=== PATIENT | female | born 1990 | race African-American/Black ===

== ENCOUNTER 2021-05-09 01:55 | Day surgery (SDC) | payer OTHER, SELFPAY ==
[2021-05-01 14:00] VITALS: BMI 23.1
--- NOTE | 2021-05-01 14:12 | PC.NURSE ---
Report to the Outpatient Waiting Room, entrance under the green pavilion located off [facility], at time 0700 on date 05/09/21. OR Time: 0900. - You and your visitor will be asked a series of questions to screen for COVID 19 for your protection. - A mask is required within the hospital. One visitor will be allowed to accompany the patient into the hospital. Patients visitor will be instructed to remain with patient at all times or leave the building. We will allow the visitor to come back to the postoperative area when patient is ready. Preoperative COVID Testing Requirements: No COVID Test needed if: (proof is required; if not received patient will have Rapid Test prior to entry) - Patient has received COVID Vaccine at least 14 days prior to procedure date or - Patient has positive COVID test result within last 90 days of surgery date. COVID Test needed if above criteria is not met Patients may have clear liquids (water, carbonated beverages, clear teas, apple juice) until 3 hours prior to surgery with a maximum of 20 ounces. - No food from midnight until time of surgery Take the following medications with a SIP of water the morning of surgery: NONE Medications to discontinue per physician: VITAMINS/SUPPLEMENTS Date to take last dose: 05/05/21 Please no make-up, nail syriac, hairspray, perfume, deodorant, or body powder the day of surgery. No jewelry (including any body piercings) or valuables the day of surgery, leave them at home. Please take a shower or bath the night before, or the morning of, surgery with an antibacterial soap. Wear comfortable, loose fitting clothing. - Jewelry must be removed prior to entering the operating room. Rings and piercings that are not removed may be cut off. - The hospital will not accept responsibility for valuables. - Please leave all valuables, including medications, at home the day of surgery. If you are going home after surgery, a licensed bulk tank driver must drive you home. - NO public transportation without another adult. - We recommend that an adult stay with you for 24 hours following discharge. - We also recommend that you do not drive, make important decision, drink alcoholic beverages, or take any drugs that were not prescribed by your health care provider for at least 24 hours after your discharge time. Follow any additional instructions given to you from your surgeon. Telephone instructions given to ANNA VIEIRA and asked if any additional questions and then verbalized understanding. Patient advised to call surgeon office or pre surgery nurse liaison [phone] if any additional questions.
--- NOTE | 2021-05-08 07:44 | PM.IMHP ---
H&P: HPI History of Present Illness Date/Time: 05/08/21 07:44 Chief Complaint: 31-year-old female admitted for hysteroscopy dilatation curettage suspected she complains of excessive heavy bleeding and underwent imaging the ultrasound which showed what appears to be uterine risks and benefits reviewed full Review of Systems Review of Systems: All systems reviewed & are unremarkable except as noted in HPI and below PMFSH Social History Social History Smoking status: Never smoker Alcohol intake: never Substance use: never Substance use type: does not use Living arrangements: with family Spiritual care concerns: No Meds Home Medications and Allergies Home Medications Medication Instructions Recorded Confirmed Type ergocalciferol (vitamin D2) 50,000 unit PO WEEKLY 05/01/21 05/01/21 History ferrous sulfate 325 mg PO DAILY 05/01/21 05/01/21 History Allergies Allergy/AdvReac Type Severity Reaction Status Date / Time No Known Allergies Allergy Verified 05/01/21 13:59 Exam Const: General: no acute distress Eyes: General: appearance normal, both eyes and all related structures Neck: Neck: supple and no JVD Thyroid: thyroid normal Resp: Effort & Inspection: normal respiratory effort Auscultation: clear to auscultation bilaterally Cardio: Rate: regular rate Rhythm: regular rhythm GI: Inspection: non-distended GI Palp: Yes Soft to palpation, No Tenderness to palpation present (GI) and No Guarding due to palpation present (GI) Auscultation: normal bowel sounds : General: Yes bladder normal to palpation External Female Exam: normal external appearance Speculum Exam - Vagina: normal vaginal discharge and No vaginal bleeding Speculum Exam - Cervix: nontender Bimanual exam- vagina & uterus: bladder normal to palpation and No Cervical tenderness present OB/external & speculum: No vaginal bleeding Skin: General skin exam: no rashes or lesions noted Extrem: General: normal to inspection and no edema Psych: Mental Status: mental status grossly normal Affect: normal affect Assessment and Plan Additional Plan impression: Excessive heavy bleeding with suspected uterine polyp Plan: Hysteroscopy/ dilatation curettage
--- NOTE | 2021-05-09 06:42 | P.PNAN_ITS ---
Anes - Eval Pre Procedure Procedure: Operation Date: 05/09/21 09:00 Proposed Procedures p Hysteroscopy Dilation and Curettage and Polypectomy - Nahid Lopez MD Date/Time: 05/09/21 06:42 Pre Op Diagnosis: irregular bleeding, polyp Patient Data Age: 31 Gender: F Height: 1.68 m Weight: 65 kg Allergies Allergy/AdvReac Type Severity Reaction Status Date / Time No Known Allergies Allergy Verified 05/01/21 13:59 Home Medications Medication Instructions Recorded Confirmed Type ergocalciferol (vitamin D2) 50,000 unit PO WEEKLY 05/01/21 05/01/21 History ferrous sulfate 325 mg PO DAILY 05/01/21 05/01/21 History Patient hx anesthesia problems: post op nausea/vomiting Family hx anesthesia problems: none Results Review: All pre-operative results and documents have been reviewed as part of the pre-operative evaluation. FOR[facility]LY [facility] Past Medical History Medical History (Updated 05/09/21 @ 06:42 by Nahid Chandra MD) Abnormal uterine bleeding Anemia Asthma Surgical History Surgical History (Updated 05/09/21 @ 06:43 by Nahid Chandra MD) History of section Social History Social History Smoking status: Never smoker Alcohol intake: never Substance use: never Substance use type: does not use Living arrangements: with family Spiritual care concerns: No Exam Day of Procedure 05/09/21 06:42 Patient weight: normal
--- NOTE | 2021-05-09 07:06 | WPDHPUPDATE1 ---
History and Physical Update Update Date/Time: 05/09/21 07:06 History and Physical has been reviewed, including an updated exam of the patient. There are NO changes in the patient's condition. Risks, benefits, and alternatives have been discussed and questions answered. Patient agrees to proceed with procedure.
[2021-05-09] MEDS: LACTATED RINGERS 1,000 ML 30 ML IV CONT (08:02)
[2021-05-09] MEDS: ACETAMINOPHEN 500 MG TABLET 1000 MG PO (08:02)
[2021-05-09 08:03] VITALS: BP 116/57; PULSE 72; RESP 16; TEMP 36.4; O2SAT 100; BMI 19.1
--- NOTE | 2021-05-09 08:08 | SUR.PREOP ---
2 RNs STUCK PT 3 TIMES FOR IV. PT DIFFICULT STICK. UNABLE TO OBTAIN H&H. CALLING DR MULTANI
--- NOTE | 2021-05-09 08:28 | WPDANESEFPP ---
Anes - Eval Final PreProcedure Day of Procedure 05/09/21 08:28 Patient weight: thin Heart: regular rate and rhythm Lungs: clear to auscultation Airway: Mallampati scale class II Neurological: alert and oriented Last oral intake: >/= 8 hours ASA classification: II Emergent: no Anesthetic plan: proceed Anesthesia type and monitoring: general GIVS and standard monitoring Results Review: All pre-operative results and documents have been reviewed as part of the pre-operative evaluation. Informed Consent: The patient's anesthetic plan and its attendant risks and benefits were discussed with the patient/family/POA. Questions were solicited and answers provided to the satisfaction of the patient/family/POA.
--- NOTE | 2021-05-09 08:52 | SUR.PREOP ---
0815; DR MULTANI NOTIFIED OF INABILITY TO OBTAIN H&H. HE CANCELLED ORDER
--- NOTE | 2021-05-09 08:55 | W.PM.PROC2 ---
Procedure Note - Detailed Date of Procedure 05/09/21 Pre-op Diagnosis irregular bleeding, polyp Post-op Diagnosis Same Procedure Performed Hysteroscopy/polypectomy/dilatation curettage Surgeon Nahid Lopez MD Anesthesia MAC and Local Indications This pleasant 31-year-old female with heavy bleeding and suspected polyps Findings Uterus sounded to8.5cm. Uterine polyps were seen x4 Description of Procedure The patient is prepped draped in the sterile fashion placed dorsal lithotomy position. Excellent IV sedation weighted speculum placed posterior fornix. Anterior lip of the cervix grasped with single-tooth tenaculum and 2.5cc of 1% xylocaine anesthesia placed at 2, 4, 8, 10:00 a.m. of the cervix. Uterus sounded 8.5cm. Serial dilatation with fragmented dilators performed followed passes of the 5mm visualizing hysteroscope. Normal saline was used as visualizing medium. Four small polyps were seen at the fundus. These were grasped with the polyp forceps and removed piecemeal. Uterus was then scraped over the entire 360? until a good grating sound was heard. When no further tissue could be removed the instruments removed. Patient was awakened went to recovery in satisfactory condition. All sponge, needle, instrument counts were correct. There were no immediate complications Estimated Blood Loss 5 Drains No Packing No Pathology Yes Complications No immediate complications Disposition PACU
[2021-05-09 09:00] VITALS: BP 111/65; PULSE 67; RESP 14; O2SAT 100
[2021-05-09 09:30] VITALS: BP 108/68; PULSE 77; RESP 16
[2021-05-09 10:05] VITALS: BP 124/68; PULSE 71; RESP 12
== END 2021-05-09 10:30 | disposition home or self-care (01) ==
PROVIDERS: Visit Provider Obstetrics & Gynecology
PROC: 0U5B8ZZ Destruction of Endometrium, Via Natural or Artificial Opening Endoscopic (ICD-10-PCS; CPT 58563; principal; 2021-05-09 09:00)
DX: N93.9 Abnormal uterine and vaginal bleeding, unspecified (principal); N84.0 Polyp of corpus uteri; D64.9 Anemia, unspecified
CPT/HCPCS: 58558; 88305; A9270; J2250; J2405; J2704; J3010; J7030; J7120

== ENCOUNTER 2021-06-20 10:47 | Outpatient (CLI) | payer OTHER, SELFPAY ==
--- NOTE | 2021-06-20 10:58 | ECG_ITS ---
Measurements Intervals [place] Rate: 65 P: 65 OR: 169 QRS: 69 QRSD: 88 T: 40 QT: 353 QTc: 369 Interpretive Statements SINUS RHYTHM BASELINE WANDER- I, II NORMAL ECG Electronically Signed On 06-20-2021 11:55:10 CDT by Michael Kay D.O.
== END 2021-06-20 10:48 | disposition home or self-care (01) ==
PROVIDERS: PCP Emergency Medicine; Visit Provider Emergency Medicine
DX: R07.9 Chest pain, unspecified (principal)
CPT/HCPCS: 93005

== ENCOUNTER 2021-07-03 11:09 | Outpatient (CLI) | payer OTHER, SELFPAY ==
--- NOTE | ~2021-07-03 | US_ITS ---
US thyroid INDICATION: Palpable thyroid lump TECHNIQUE: Real-time sonographic images of the thyroid gland were obtained. COMPARISON: No prior studies for comparison. FINDINGS: The right thyroid lobe measures 5.2 x 1.5 x 1.9 cm. The left thyroid lobe measures 4.2 x 1 .3 x 1.6 cm. There is normal echotexture and echogenicity throughout the thyroid gland. No discrete n odules identified. Normal vascular flow is present. IMPRESSION: 1. Normal thyroid without discrete nodule or abnormal vascularity. Reviewed, dictated and finalized at location B.
== END 2021-07-03 11:10 | disposition home or self-care (01) ==
LOC: ANHIMG 11:09
PROVIDERS: PCP Emergency Medicine; Visit Provider Emergency Medicine
DX: E04.9 Nontoxic goiter, unspecified (principal)
CPT/HCPCS: 76536

== ENCOUNTER 2021-10-15 22:03 | Emergency (ER) | payer OTHER, SELFPAY ==
--- NOTE | ~2021-10-15 | US_ITS ---
EXAMINATION: US OB <=14 wk fetus w TV DATE: 10/16/2021 00:48 INDICATION: Low abdominal pain. Vaginal bleeding. . TECHNIQUE: Real-time transabdominal and transvaginal pelvic ultrasound was performed. COMPARISON: None. FINDINGS: TRANSABDOMINAL ULTRASOUND: The uterus measures 9.3 x 5.2 x 4.8 cm. TRANSVAGINAL ULTRASOUND: There is no visible intrauterine gestational sac. The right ovary measures 3.2 x 3.2 x 1.7 cm. The left ovary measures 2.6 x 2.7 x 1.4 cm. There is physiologic free fluid in th e pelvis. IMPRESSION: 1. No visible intrauterine gestational sac, which may be normal in early . Spontaneous abor tion and ectopic are not excluded. Serial beta-hCGs are recommended. Reviewed, dictated and finalized at location A. IMPRESSION: 1. No visible intrauterine gestational sac, which may be normal in early pregn allison. Spontaneous and ectopic are not excluded. Serial beta- hCGs are recommended.
[2021-10-15 22:05] VITALS: BP 131/75; PULSE 72; RESP 16; TEMP 36.8; O2SAT 100
--- NOTE | 2021-10-15 22:34 | ED.PREGNANCY ---
HPI - General Chief complaint: Vaginal Bleeding Stated complaint: vaginal bleeding, 4wks preg Time Seen by Provider: 10/15/21 22:18 Source: patient Mode of arrival: ambulatory Limitations: no limitations History of Present Illness HPI Narrative: Patient is a 31-year-old female who presents ED with report of vaginal bleeding. Patient is G4, P1, and had a positive test last week. Approximately 4 weeks gestation by last normal menstrual period. Patient reports she developed light brown vaginal spotting yesterday. Today around 7 PM, bleeding became slightly more heavier and bright red in color. She then decided to come to the ED. She reports having intermittent lower abdominal cramping, but denies any pain at this exact moment. She has not seen her DOG TRAINER yet, but has seen Dr. Dontrell Graham in the past. Denies any fever, vomiting, urinary symptoms, has had some nausea. Related Data Allergies Allergy/AdvReac Type Severity Reaction Status Date / Time No Known Allergies Allergy Verified 10/15/21 22:25 Review of Systems Review of Systems: CONSTITUTIONAL: Denies fever, chills, or sweats. CARDIOVASCULAR: Denies chest pain. RESPIRATORY: Denies dyspnea. GASTROINTESTINAL: Reports lower ABD cramping, nausea. Denies vomiting, or diarrhea. GENITOURINARY: Reports vaginal bleeding. Denies dysuria or hematuria. All systems reviewed & are unremarkable except as noted in HPI and below PMFSH Past Medical History Medical History Abnormal uterine bleeding (~2021) Anemia Asthma Chicken pox Endometrial polyp Fibroadenoma of right breast (~2011) Miscarriage Surgical History Surgical History History of section (~2018) History of hysterectomy (~2021) Family History Family History Father No problems noted. Mother No problems noted. Social History Social History Social History: Patient does not drink caffeine Smoking status: Never smoker Second hand tobacco smoke exposure: No Alcohol intake: never Substance use: never Substance use type: does not use Additional living arrangements comments: Patient is Gender identity (if verbalized by the patient): Female Sexual Orientation (if Verbalized by the Patient): Straight or Heterosexual Spiritual care concerns: No Exam Narrative: GENERAL: Well appearing, well-nourished, non-toxic, in no acute distress. HEAD: Normocephalic, atraumatic. NECK: Supple. No adenopathy, no masses. RESPIRATORY: Airway patent, respirations nonlabored. Clear to auscultation bilaterally, no rales, rhonchi, wheezing. CARDIOVASCULAR: Regular rate and rhythm without murmurs, rubs, or gallops. Peripheral pulses 2+ and equal bilaterally. ABDOMINAL: Soft, minimal lower ABD tenderness, nondistended, no hepatosplenomegaly. Normoactive BS. PELVIC: Normal external genitalia. Cervix easily identifiable. Os did not appear open. Small amount of brown discharge/bleeding in vaginal vault and coming from os. No significant CMT. No signs of hemorrhage or pooling of blood. MUSCULOSKELETAL: Moves all extremities. Strength/ROM intact without gross deformities. SKIN: Warm, dry, normal color. No rashes. NEURO: A&O X3. Speech clear. Cranial nerves II-XII grossly intact. Steady gait. No ataxic movements. PSYCHIATRIC: Appropriate mood and affect. Normal interaction. Course Consultations Consultation #1: Discussed case with Dr. Draper, DOG TRAINER on-call for Dr. Dontrell Graham, advise repeat beta-hCG on Wednesday and follow-up in office with Dr. Dontrell Graham next week. Date: 10/16/21 Vital Signs Vital signs: Vital Signs Temperature 98.3 F 10/15/21 22:05 Pulse Rate 72 10/15/21 22:05 Respiratory Rate 16 10/15/21 22:05 Blood Pressure 131/75 10/15
[2021-10-15 22:47] LABS: Basophils Percent Auto 0.5 % (0.2-1.2); Eosinophils Absolute Auto 0.1 K/mm3 (0-0.3); Eosinophils Percent Auto 1.6 % (0-4.4); Hematocrit 37.7 % (37.0-47.0); Hemoglobin 11.7 g/dL (12.0-15.0); Immature Granulocyte Absolute 0.01 K/mm3 (0.00-0.031); Immature Granulocyte Percent A 0.2 % (0-0.5); Lymphocytes Percent Auto 40.4 % (18.3-44.2); Mean Corpuscular Hemoglobin 23.9 pg (26-34); Mean Corpuscular Volume 77.1 fl (80-100); Mean Platelet Volume 11.1 fl (7.4-10.4); Monocytes Absolute Auto 0.3 K/mm3 (0.1-0.6); Monocytes Percent Auto 5.3 % (2.6-8.5); Neutrophils Absolute Auto 3.4 K/mm3 (1.3-6.7); Platelet Count Result 189 k/mm3 (150-375); Red Blood Count 4.89 M/mm3 (4.2-5.4); Red Cell Distribution Width 13.7 % (11.5-14.5); White Blood Count 6.4 K/mm3 (4.5-10.0)
--- NOTE | 2021-10-15 23:49 | PC.NURSE ---
US tech called at this time. Pt will be next.
--- NOTE | 2021-10-16 01:24 | PC.NURSE ---
BRENNA Bowie at [facility] for pelvic exam at this time.
[2021-10-16 02:04] VITALS: BP 121/74; PULSE 66; RESP 12; TEMP 36.8; O2SAT 100
[2021-10-16 03:09] VITALS: BP 121/86; PULSE 69; RESP 16; O2SAT 100
== END 2021-10-16 03:09 | disposition home or self-care (01) ==
PROVIDERS: Emergency Provider Emergency Medicine; PCP Emergency Medicine
DX: O20.0 Threatened abortion (principal); O99.511 Diseases of the respiratory system complicating pregnancy, first trimester; J45.909 Unspecified asthma, uncomplicated; O99.011 Anemia complicating pregnancy, first trimester; D64.9 Anemia, unspecified; Z3A.01 Less than 8 weeks gestation of pregnancy
CPT/HCPCS: 36415; 76801; 76817; 84702; 85025; 85461; 99284

== ENCOUNTER 2021-10-17 14:18 | Outpatient (CLI) | payer OTHER, SELFPAY ==
[2021-10-17 15:01] LABS: Beta HCG Quantitative 133.98 mIU/ML
== END 2021-10-17 14:19 | disposition home or self-care (01) ==
LOC: ANHLAB 14:21
PROVIDERS: PCP Emergency Medicine; Referring Provider Obstetrics & Gynecology; Visit Provider Physician Assistant
DX: O20.0 Threatened abortion (principal); Z3A.00 Weeks of gestation of pregnancy not specified
CPT/HCPCS: 36415; 84702

== ENCOUNTER 2021-10-24 09:01 | Outpatient (CLI) | payer OTHER, SELFPAY ==
[2021-10-24 09:58] LABS: Beta HCG Quantitative 7.46 mIU/ML
== END 2021-10-24 09:02 | disposition home or self-care (01) ==
PROVIDERS: PCP Emergency Medicine; Visit Provider Obstetrics & Gynecology
DX: Z34.80 Encounter for supervision of other normal pregnancy, unspecified trimester (principal)
CPT/HCPCS: 36415; 84702

== ENCOUNTER 2021-10-31 09:04 | Outpatient (CLI) | payer OTHER, SELFPAY ==
[2021-10-31 09:59] LABS: Beta HCG Quantitative < 2.39 mIU/ML
== END 2021-10-31 09:05 | disposition home or self-care (01) ==
LOC: ANHLAB 09:07
PROVIDERS: PCP Emergency Medicine; Visit Provider Obstetrics & Gynecology
DX: O02.1 Missed abortion (principal); Z3A.00 Weeks of gestation of pregnancy not specified
CPT/HCPCS: 36415; 84702

== ENCOUNTER 2022-01-05 16:12 | Outpatient (CLI) | payer OTHER, SELFPAY | END 2022-01-05 16:13 | disposition home or self-care (01) | LOC: ANHLAB 16:14 | PROVIDERS: PCP Emergency Medicine; Visit Provider Obstetrics & Gynecology | DX: O20.0 Threatened abortion (principal); Z3A.00 Weeks of gestation of pregnancy not specified | CPT/HCPCS: 36415; 84702 ==

== ENCOUNTER 2022-01-06 09:37 | Outpatient (CLI) | payer OTHER, SELFPAY ==
--- NOTE | ~2022-01-06 | US_ITS ---
EXAMINATION: US OB <= 14 weeks fetus DATE: 01/06/2022 10:25 INDICATION: Vaginal bleeding TECHNIQUE: Real-time pelvic ultrasound utilizing both a transvaginal and transabdominal probe was pe rformed. The interpreting radiologist was not present for the study. COMPARISON: None. FINDINGS: The uterus measures 10.7 x 9.3 x 9.1 cm. There is an intrauterine gestational sac. A yolk sac and fe carlos eduardo pole are identified. The crown rump length measures 2.3 cm, which correlates with an estimated ge stational age of 9 weeks and 0 days. heart motion is identified measuring 184 beats per minute (bpm) by M-mode Doppler. Cervical length of 4.0 cm. The right ovary measures 2.6 x 2.1 x 1.9 cm. 1.3 cm anechoic likely corpus luteum cyst in the right o vary. Vascular flow with arterial waveforms identified in the right ovary on color Doppler. The left ovary is not visualized. There is a minimal amount of anechoic free fluid in the pelvis. IMPRESSION: 1. Single living fetus with heart rate of 184 bpm. 2. Gestational age by ultrasound of 9 weeks 0 day(s) +/- 6 day(s) with ultrasound estimated date of delivery (LONNIE) of 08/11/2022. Reviewed, dictated and finalized at location A. OPERATOR IMPRESSION: 1. Single living fetus with heart rate of 184 bpm. 2. Gestational age by ultrasound of 9 weeks 0 day(s) +/- 6 day(s) with ultraso und estimated date of delivery (LONNIE) of 08/11/2022.
== END 2022-01-06 09:38 | disposition home or self-care (01) ==
PROVIDERS: PCP Emergency Medicine; Visit Provider Obstetrics & Gynecology
DX: O20.9 Hemorrhage in early pregnancy, unspecified (principal); Z3A.08 8 weeks gestation of pregnancy
CPT/HCPCS: 76801

== ENCOUNTER 2022-01-20 16:55 | Outpatient (CLI) | payer OTHER, SELFPAY ==
[2022-01-20 17:22] LABS: Hematocrit 30.1 % (37.0-47.0); Hemoglobin 9.6 g/dL (12.0-15.0); Mean Corpuscular HGB Conc 31.9 g/dl (32-36); Mean Corpuscular Hemoglobin 24.4 pg (26-34); Mean Corpuscular Volume 76.4 fl (80-100); Mean Platelet Volume 10.1 fl (7.4-10.4); Platelet Count Result 170 k/mm3 (150-375); Red Blood Count 3.94 M/mm3 (4.2-5.4); Red Cell Distribution Width 14.3 % (11.5-14.5); White Blood Count 6.3 K/mm3 (4.5-10.0)
[2022-01-20 18:10] LABS: Hepatitis B Surface Antigen Negative (Negative)
[2022-01-20 18:12] LABS: HIV 1/2 Ab P24 Ag Result Negative (Negative)
[2022-01-20 18:22] LABS: Rubella IgG Antibody > 120.0 IU/ML
[2022-01-21 10:55] LABS: Rapid Plasma Reagin Non-Reactive (NonReactive)
== END 2022-01-20 16:56 | disposition home or self-care (01) ==
PROVIDERS: PCP Emergency Medicine; Visit Provider Obstetrics & Gynecology
DX: Z33.1 Pregnant state, incidental (principal)
CPT/HCPCS: 36415; 85027; 86592; 86703; 86762; 86850; 86900; 86901; 87340; G0432

== ENCOUNTER 2022-05-06 09:07 | Outpatient (CLI) | payer OTHER, SELFPAY ==
[2022-05-06 09:38] LABS: Hematocrit 32.4 % (37.0-47.0); Hemoglobin 10.2 g/dL (12.0-15.0)
[2022-05-06 10:28] LABS: HIV 1/2 Ab P24 Ag Result Negative (Negative)
[2022-05-06 11:03] LABS: Glucose 1 Hour 104 mg/dL
== END 2022-05-06 09:08 | disposition home or self-care (01) ==
PROVIDERS: PCP Emergency Medicine; Visit Provider Obstetrics & Gynecology
DX: Z34.90 Encounter for supervision of normal pregnancy, unspecified, unspecified trimester (principal); Z3A.00 Weeks of gestation of pregnancy not specified
CPT/HCPCS: 36415; 85014; 85018; 86703; G0432